=== PATIENT | male | born 1965 | race Caucasian/White ===

== ENCOUNTER → 2020-06-24 17:44 | Outpatient (CLI) | payer MEDICARE, MEDICAID, SELFPAY ==
--- NOTE | 2020-06-24 17:52 | RAD_ITS ---
STUDY: X-RAY - LUMBAR SPINE REASON FOR EXAM: Male, 54 years old. PAIN TECHNIQUE: 2 view(s) of the lumbar spine were obtained. COMPARISON: None FINDINGS: There is reversal of the normal lumbar lordosis. Mild levoscoliosis. 1.6 cm anterolisthesis of L5 on L4 without an apparent interarticularis defect. Is status post a laminectomy from T12 through L5. There is fusion of the L3-L4 vertebral bodies with no remaining disc space. The fusion has occurred with approximately 1.2 cm of retrolisthesis of L3 on L4. Advanced degenerative disc narrowing at L5-S1. Moderate degenerative disc narrowing at L2-3. Minimal disc narrowing at L1-2 and L4-5. 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 RAD/Lumbar Spine 2 or 3 Views IMPRESSION: Straightening of the lumbar spine with a 1.6 cm anterolisthesis of L5-S1 with advanced degenerative disc changes at L5-S1. 1.2 cm retrolisthesis of L3-L4 which are fused across the disc space. Moderate disc narrowing at L3-4. Status post laminectomy from T12 through L5. Electronically Signed: Chelsey De Santiago MD at 17:38 EST , Service support ,
--- NOTE | 2020-06-24 17:55 | RAD_ITS ---
STUDY: X-RAY - CERVICAL SPINE REASON FOR EXAM: Male, 54 years old. PAIN TECHNIQUE: 3 view(s) of the cervical spine were obtained. COMPARISON: Prior cervical spine imaging of 02/08/2017 FINDINGS: Normal anterior atlantoaxial articulation. Normal odontoid process. Reversal of the usual cervical lordosis. 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 The deformity is unchanged from prior exam. Advanced disc narrowing and spondylitic endplate changes at C3-4, C5-6 and C6-7. Uncovertebral arthrosis present throughout the cervical spine and degenerative facet joint changes. The soft tissue structures are unremarkable. RAD/Cerv Spine 2 or 3 Views IMPRESSION: Reversal of the usual cervical lordosis secondary to fused C5 and C6 vertebral bodies with a wedge-shaped block, substantial loss of anterior height. Advanced degenerative disc and joint changes particularly at C3-4, C4-5 and C6-7. The deformity of C5 and C6 is stable from prior exam. The kyphosis of the cervical spine has increased. Degenerative disc changes have probably increased at C6-7 with slightly greater retrolisthesis of C6 on C7. Electronically Signed: Chelsey De Santiago MD at 16:59 EST , Service support ,
== END ==
PROVIDERS: Visit Provider Anesthesiology Pain Medicine
DX: M54.2 Cervicalgia (principal); M54.5 Low back pain
CPT/HCPCS: 72040; 72100

== ENCOUNTER 2020-08-26 15:40 | Outpatient (RCR) | payer MEDICARE, MEDICAID, SELFPAY ==
--- NOTE | 2020-08-26 16:26 | HP.PTEVAL ---
Patient's Visit Information JOHANA FELDMAN is a 54 year old M referred to Physical Therapy by Dr. Maryjane Herman MD with a diagnosis of LBP neck pain. Date of Evaluation: 08/26/20 Physical Therapist: Godwin Brown, JESÚST, OCS, CSCS - Visit Plan Frequency: 2x /Week Duration: 4-6 Weeks Plan: 2x/week x 4-6 weeks for water therapy for : stretch gastroc, quad and HS,. LB and neck ROM(emphasize ext adn retraction at neck. 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 Could not walk due to infection. Back was very painful and legs would not move the way he wanted. Painful since then. Seeing [facility] and been doing injections adn pain meds for a couple months now. He got worse about two months ago. Got a number of months. Pain in last couple weeks has been worse with rain adn 8/10 in spine neck shoulders knees hip. Feels comfortable at rest for the most part. Activitiy makes it worse. LBP hurts currently at rest to 8/10. Numbness and tingling in legs since 2005. Had spinal stenosis since then. Sleeping now is mostly OK, if he doesn't overdo it. Sitting in car makes him worse. Not employed due to spine. Disability. Spends day craft stuff with girlfriend. Has to limit actvitiy due to pain. Not doing regular ex. - Pain LB Pain Intensity (Out of 10): 8 Pain Intensity Range: 0, 8 - Objective 20 minutes late. Walks slow but steady back to treatment akira I. TransfersI, steps reciprocal and stiff but I with rail, avoids FW weight shift. cervical AROM ext 45 degrees and deviates R, retraction painful L side, SB 15 degrees and symmetrical, rotation 55 degrees and symmetrical, slight pain L. Painful to palpation L cs muscles adn feel mildly tight throughout. + c/s compression especially to L. sensation UE WNL to gross light touch. reflexes 2/3 bi and tri. strength UE 4-/5 ex cept R ext rotation 3+. Limmited R shoulder elevation due to previous bursitis surgery Functional ROM. LB AROM is max limited in ext and flexion, min limited in B SB. Has incision post lumbar area with mod scar tissue and very tight. reflexes 2/3 patella and achilles. Sensation LE diminished to gross light touch below knees. Strength LE 4-/5 throughout without myotomal abnormalities. Tightness max in HS, gastroc, quad. - slump and SLR test. - Goals Goal 1:: I management of condition with water ex at [facility] [employer]neakers being exit strategy Goal Time Frame: 4-6 Weeks Goal 2:: Pt feel 50% better in mobility and strength adn pain Goal Time Frame: 4-6 Weeks Goal 3:: Back oswestry score 15 or less. Goal Time Frame: 4-6 Weeks - Rehabilitation Potential Physical Therapy Diagnosis: degenerative changes LB and neck causing pain poorly managed by patient. Rehabilitation Potential: Questionable - Anticipated Interventions Patient/Client Instruction: Educate patient on: Condition For the Purpose of:: To decrease pain, To increase ROM, To improve muscle performance and motor function, To increase tolerance to activity/condition/position Therapeutic Exercise to Include: Strength training, Flexibilty training, Gait and locomotor training, In an aquatic setting, Passive ROM, Active ROM, Dynamic Lumbar Stabilization For the Purpose of:: To decrease pain, To increase ROM, To improve muscle performance and motor function, To increase tolerance to activity/condition/position Thank you for the opportunity to evaluate your patient. For Medicare and Medicare HMO plans, please review the plan of care and approve it. It will need to be FAXED BACK to us at [phone] for Medicare purposes. For Medicare only, by signing this I certify the plan of care. Please let me know if there are questions or concerns regarding this plan of care. Physician Signature: Date:
--- NOTE | 2020-11-11 11:43 | HP.PT.NRP ---
JOHANA FELDMAN was seen in my office for initial evaluation on 08/26/20. The following Plan of Care was established for this patient: Initial Frequency: 2x /Week Initial Duration: 4-6 Weeks Patient/Client Instruction: Educate patient on: Condition For the Purpose of:: To decrease pain, To increase ROM, To improve muscle performance and motor function, To increase tolerance to activity/condition/position Therapeutic Exercise to Include: Strength training, Flexibilty training, Gait and locomotor training, In an aquatic setting, Passive ROM, Active ROM, Dynamic Lumbar Stabilization For the Purpose of:: To decrease pain, To increase ROM, To improve muscle performance and motor function, To increase tolerance to activity/condition/position This patient was last seen in our office 08/26/20. Pertinent comments regarding their Physical therapy will appear below: Pt seen for initial evaluation adn POC established. He neglected to schedule ro attend any of those visits. at this point, it has been over two months and I will discontinue due to nonattendance. At this point I will be discontinuing this patient from physical therapy. I would be happy to see this patient again in the future if found appropriate by the physician. Thank you! Godwin Brown, DPT, OCS, CSCS Balance/Gait/Functional tests - Balance/Special Test Scores Oswestry Low Back Score: 22
== END 2020-08-26 19:00 | disposition home or self-care (01) ==
LOC: PT 15:40
PROVIDERS: Referring Provider Anesthesiology Pain Medicine; Visit Provider Anesthesiology Pain Medicine
DX: M54.9 Dorsalgia, unspecified (principal); M54.2 Cervicalgia
CPT/HCPCS: 97162

== ENCOUNTER → 2020-09-16 15:52 | Outpatient (CLI) | payer MEDICARE, MEDICAID, SELFPAY ==
[2020-09-16 17:28] LABS: Amphetamine Urine VISTA NEGATIVE (<1000 ng/mL); Barbiturate Urine VISTA NEGATIVE (< 200 ng/mL); Benzodiazepine Urine VISTA NEGATIVE (< 200 ng/mL); Cocaine Urine VISTA NEGATIVE (< 300 ng/mL); Ecstacy Urine VISTA NEGATIVE (< 500 ng/mL); Methadone Urine VISTA NEGATIVE (< 300 ng/mL); PCP Urine VISTA NEGATIVE (< 25 ng/mL); THC Urine VISTA NEGATIVE (< 50 ng/mL); Vista UDS pH Range 6
== END ==
PROVIDERS: Referring Provider Anesthesiology Pain Medicine; Visit Provider Anesthesiology Pain Medicine
DX: F11.20 Opioid dependence, uncomplicated (principal)
CPT/HCPCS: 80307

== ENCOUNTER → 2021-09-16 | Outpatient (CLI) | payer MEDICARE, MEDICAID, SELFPAY ==
[2021-09-16 14:04] LABS: Amphetamine Urine VISTA NEGATIVE (<1000 ng/mL); Barbiturate Urine VISTA NEGATIVE (< 200 ng/mL); Benzodiazepine Urine VISTA NEGATIVE (< 200 ng/mL); Cocaine Urine VISTA NEGATIVE (< 300 ng/mL); Ecstacy Urine VISTA NEGATIVE (< 500 ng/mL); Methadone Urine VISTA NEGATIVE (< 300 ng/mL); PCP Urine VISTA NEGATIVE (< 25 ng/mL); THC Urine VISTA NEGATIVE (< 50 ng/mL); Vista UDS pH Range 6
== END | disposition home or self-care (01) ==
LOC: LAB 11:12
PROVIDERS: Visit Provider Anesthesiology Pain Medicine
DX: F11.20 Opioid dependence, uncomplicated (principal)
CPT/HCPCS: 80307

== ENCOUNTER → 2022-04-06 | Outpatient (CLI) | payer MEDICARE, MEDICAID, SELFPAY ==
[2022-04-06 18:36] LABS: Amphetamine Urine VISTA NEGATIVE (<1000 ng/mL); Barbiturate Urine VISTA NEGATIVE (< 200 ng/mL); Benzodiazepine Urine VISTA NEGATIVE (< 200 ng/mL); Cocaine Urine VISTA NEGATIVE (< 300 ng/mL); Ecstacy Urine VISTA NEGATIVE (< 500 ng/mL); Methadone Urine VISTA NEGATIVE (< 300 ng/mL); PCP Urine VISTA NEGATIVE (< 25 ng/mL); THC Urine VISTA NEGATIVE (< 50 ng/mL); Vista UDS pH Range 9
== END | disposition home or self-care (01) ==
LOC: LAB 16:52
PROVIDERS: Visit Provider Anesthesiology Pain Medicine
DX: F11.20 Opioid dependence, uncomplicated (principal)
CPT/HCPCS: 80307